=== PATIENT | female | born 1965 | race Caucasian/White ===

== ENCOUNTER 2018-09-21 10:21 | Day surgery (SDC) | payer OTHER ==
[2018-09-21 11:00] VITALS: BMI 29.1
[2018-09-21 13:00] VITALS: TEMP 98
[2018-09-21 13:02] VITALS: BP 111/49; PULSE 71
--- NOTE | 2018-09-24 17:02 | PATH ---
Surgical Pathology Report Patient Name: DARNELL JULIAN [facility]. Rec. #: [id number] /Age/Gender: 1965 (Age: 53) / F Account: [id number] Location: [facility]-ENDOSCOPY Taken: 09/21/2018 Received: 09/21/2018 Reported: 09/24/2018 Physicians: Tyron Gaona M.D. Specimen(s) Received POLYP SIGMOID COLON Clinical History Colon screening Postoperative diagnosis: Colon polyps, sigmoid diverticulosis Final Diagnosis SIGMOID COLON, POLYP, POLYPECTOMY: POLYPOID COLONIC MUCOSA WITH PROMINENT LYMPHOID AGGREGATE AND SUPERFICIAL HYPERPLASTIC FEATURES. Electronically Signed Clara Hall M.D. Gross Description Received in formalin, labeled "polyp sigmoid colon" are 2 payne, irregular portions of soft tissue averaging 0.4 cm. in greatest dimension. The specimens are submitted in toto in one cassette. /09/21/201809/21/2018
== END 2018-09-21 13:01 | disposition home or self-care (01) ==
LOC: JASU-ENDO 10:21
PROVIDERS: ATTEND Internal Medicine Gastroenterology
PROC: 0DBN8ZX Excision of Sigmoid Colon, Via Natural or Artificial Opening Endoscopic, Diagnostic (ICD-10-PCS; principal; 2018-09-21 11:00)
DX: Z12.11 Encounter for screening for malignant neoplasm of colon (principal); D12.5 Benign neoplasm of sigmoid colon; K57.30 Diverticulosis of large intestine without perforation or abscess without bleeding
CPT/HCPCS: 88305-TC

== ENCOUNTER 2024-05-30 07:09 | Emergency (ER) | payer OTHER ==
[2024-05-30 07:41] VITALS: BP 118/77; PULSE 94; RESP 18; TEMP 97.7; BMI 25.7
[2024-05-30] MEDS ORDERED: IBUPROFEN 600 MG TABLET (FP) PO ONE (07:56)
[2024-05-30] MEDS: IBUPROFEN 600 MG TABLET (FP) PO ONE (07:58)
== END 2024-05-30 08:15 | disposition home or self-care (01) ==
LOC: FER 07:09
PROC: 0H98XZZ Drainage of Buttock Skin, External Approach (ICD-10-PCS; principal; 2024-05-30)
DX: L02.31 Cutaneous abscess of buttock (principal)
CPT/HCPCS: 99283-25

== ENCOUNTER 2024-06-01 10:12 | Emergency (ER) | payer OTHER ==
[2024-06-01 10:22] VITALS: BP 128/71; PULSE 98; RESP 18; TEMP 97.7; BMI 28.2
== END 2024-06-01 11:00 | disposition home or self-care (01) ==
LOC: FER 10:12
DX: Z48.00 Encounter for change or removal of nonsurgical wound dressing (principal)
CPT/HCPCS: 99281-25